=== PATIENT | female | born 1980 | race Caucasian/White ===

== ENCOUNTER 2016-11-12 21:38 | Observation (INO) | payer OTHER ==
[2016-11-13] MEDS ORDERED: LR 1,000 ML IV ONE (00:30)
[2016-11-13] MEDS ORDERED: PROMETHAZINE HCL 25 MG TAB PO ONE (00:30)
--- NOTE | 2016-11-13 08:24 | OBPROG ---
OBG Progress Note Assessment/Plan: Assessment: 36 y/o @ 37 6/7 wks who presents with previous c/s with c/o painful ctx' s for morphine rest Plan: FHTs Cat I strip No change in cervix upon exam by RN this am s/p morphine rest, pt slept throughout the night Discussed with pt that her ctx's despite being painful are not making any cervical change Pt eat breakfast prior to d/c Plan for d/c home with labor precautions Recommend warm baths/showers, heating pad and [place] (Rx given) as needed for pain RTC in 1 week for visit 11/13/16 08:20 11/13/16 08:25 Subjective: Pt seen and examined. She states ctx's have spaced out since receiving morphine and that some are more painful than others. Denies any LOF or VB. Good FM noted. Pt has not eaten since 1800 last pm. Trying to stay well hydrated. - SVE Dilation (cm): 0 Station: -2, -1 Current Contraction Pattern: Irregular FHR (bpm): 130 FHR Pattern Variability: Moderate FHR Category: 1 Membranes: Intact - Physical Exam General Appearance: WD/WN, alert, no apparent distress Abdomen: non-tender, soft, other (gravid) ICD10 Worksheet Patient Problems: Problems Problem Status Onset Uterine contractions Acute Previous section Acute
--- NOTE | 2016-11-13 09:12 | GHP ---
[f rep st] HISTORY AND PHYSICAL DATE OF ADMISSION: 11/12/2016 . ADMITTING DIAGNOSES: 1. Intrauterine at 37 and 5/7 weeks. 2. Painful uterine contractions, r/o labor 3. Previous section. HISTORY OF PRESENT ILLNESS: Patient is a 36-year-old, 2, para 1-0-0-1 at 37 and 5/7 days with estimated due date 11/28/2016 by last menstrual 2015, confirmed by a first-trimester ultrasound at 8 weeks. The patient presents to Labor and Delivery with complaints of painful contractions on and off for the last 24 hours. The patient was given the option to come in to Labor and Delivery for morphine rest, and that is what she did. The patient denies any leakage of fluid. She did note some spotting but no vaginal bleeding. Good movement noted. The patient does have good care at [facility], and presented in her 1st trimester at 8 weeks and 5 days. is complicated by a history of a secondary to breech. Patient does desire repeat at this time. The patient does have a history of anxiety, not taking any meds. She is Rh negative and did receive RhoGAM on 08/31/2016. The patient does have a history of kidney stones but no issues in this . The patient received both flu shot and TDaP during . GBS is negative. PAST OB HISTORY: In 2006, the patient delivered a viable female , weighing 6 pounds 6 ounces at 38 weeks via secondary to breech presentation. FINE DINING SERVER HISTORY: Menarche age 13. Cycles are every 28 days times 4-6 days. Last menstrual period 02/14/2016. Positive test 03/13/2016. The patient denies any exposure to STDs and any history of abnormal Pap smear except she did have an abnormal Pap during this , ASCUS with negative high-risk HPV. Both gonorrhea and chlamydia cultures were negative in this . PAST MEDICAL HISTORY: Remarkable for anxiety, kidney stones. PAST SURGICAL HISTORY: Remarkable for breast augmentation in 2012, a in 2006, and wisdom teeth extraction. FAMILY HISTORY: Maternal grandmother and mother with history of depression and anxiety. SOCIAL HISTORY: Patient is and lives with her and their daughter. The patient denies any alcohol, tobacco, or illicit drug use. LABORATORIES: Patient is A negative, antibody negative. RPR nonreactive. Rubella low positive. Hepatitis B surface antigen negative. HIV negative. Pap test with ASCUS. Gonorrhea and chlamydia negative. AFP negative. Verifi is negative. H and H 12.3 and 36.3. 1-hour Glucola 69. Twenty-eight week Rh antibody negative. 34-week hematocrit 34. GBS is negative. PHYSICAL EXAMINATION: VITAL SIGNS: Upon admission vital signs are stable. Afebrile. GENERAL: Patient is alert, oriented x3. Well-nourished, well- developed female in no apparent distress. CARDIOVASCULAR: Regular rate and rhythm. LUNGS: Clear to auscultation. ABDOMEN: Gravid, soft, nontender, nondistended. PELVIC: Exam was done and the patient was found to be closed, 50 %, -2. EXTREMITIES: Normal to inspection without edema or calf tenderness. On monitor, heart tones are Category 1 tracing. Moderate variability. Positive accelerations. No decelerations. Baseline of 130 beats per minute. Irregular contractions. ASSESSMENT: The patient is a 36-year-old, 2, para 1-0-0-1 at 37 and 5/ 7 weeks with a previous who presents with painful contractions for morphine rest. PLAN: 1. Admit to Labor and Delivery for observation. 2. No active labor, suspect prodromal labor. 2. Will morphine rest. 3. NST. /[id number]/MODL MTDD
[2016-11-13] MEDS ORDERED: OXYTOCIN 100 UNITS/10 ML VIAL ONE (18:47)
[2016-11-13] MEDS ORDERED: fentaNYL 100 MCG/2 ML INJ ONE (18:48)
[2016-11-13] MEDS ORDERED: morphINE PF 5 MG/10 ML INJ ONE (18:49)
[2016-11-13] MEDS ORDERED: PHENYLEPHRINE 10 MG/ML SDV ONE (19:03)
== END 2016-11-13 10:30 | disposition home or self-care (01) ==
LOC: FLD 21:38
PROVIDERS: ADMIT Obstetrics & Gynecology; ATTEND Obstetrics & Gynecology
DX: O47.1 False labor at or after 37 completed weeks of gestation (principal); Z3A.37 37 weeks gestation of pregnancy; O34.212 Maternal care for vertical scar from previous cesarean delivery
CPT/HCPCS: 59025; G0378; J2274; J2370; J2590; J3010

== ENCOUNTER 2016-11-13 17:20 | Inpatient (IN) | payer OTHER ==
[2016-11-13] MEDS ORDERED: ceFAZolin 2 GM/DEXTROSE 100 ML IV ONE (18:26)
[2016-11-13] MEDS ORDERED: LR 500 ML IV ONE (18:26)
[2016-11-13] MEDS ORDERED: LR 1,000 ML IV SCH (18:30)
[2016-11-13] MEDS ORDERED: MISOPROSTOL 200 MCG TAB ONE (18:35)
[2016-11-13] MEDS ORDERED: AMMONIA AROMATIC 1 EACH AMP IH ONE (18:35)
[2016-11-13] MEDS ORDERED: OXYTOCIN 10 UNIT/ML VIAL ONE (18:35)
[2016-11-13] MEDS ORDERED: HEMABATE 250 MCG/1 ML AMP IM ONE (18:36)
[2016-11-13 18:37] LABS: % IMMATURE GRANULYOCYTES 0.5 % (0.0-1.1); ABSOLUTE IMMATURE GRANULOCYTES 0.07 10^3/uL (0.00-0.10); ADD DIFF? NO; ADD MORPH? NO; ADD SCAN? NO; ATYPICAL LYMPHOCYTE FLAG 10 (0-99); FRAGMENT RBC FLAG 0 (0-99); HEMATOCRIT 39.1 % (38.0-47.0); HEMOGLOBIN 13.7 g/dL (12.6-16.3); LEFT SHIFT FLG 0 (0-99); LIPEMIA HEMOLYSIS FLAG 90 (0-99); MEAN CELL HEMOGLOBIN 30.4 pg (27.9-34.1); MEAN CELL VOLUME 86.9 fL (81.5-99.8); MEAN PLATELET VOLUME 12.2 fL (8.7-11.7); PLATELET CLUMPS FLAG 0 (0-99); PLATELET COUNT 177 10^3/uL (150-400); RED CELL DISTRIBUTION WIDTH 12.8 % (11.5-15.2)
[2016-11-13] MEDS ORDERED: METHYLERGONOVINE MAL 0.2 MG/ML INJ ONE (18:37)
--- NOTE | 2016-11-13 19:24 | GHP ---
[f rep st] HISTORY AND PHYSICAL DATE OF ADMISSION: 11/13/2016 ADMITTING DIAGNOSES: 1. Intrauterine at 37 and 6/7 weeks. 2. Active labor. 3. Previous . 4. Declines trial of labor. HISTORY OF PRESENT ILLNESS: Patient is a 36-year-old, 2, para 1-0-0-1 at 37 and 6/7 weeks with estimated due date 11/28/2016 by last menstrual period 02/14/2016, was confirmed by 1st trimester ultrasound 8 weeks. The patient presents to labor and delivery with complaints of worsening contractions, closer , every 5 minutes and increased pain. Still notes brownish discharge, no leakage of fluid. States there is good movement. The patient does have good care at [facility], presented in her 1st trimester 8 weeks 5 days. is complicated by history of a secondary to breech. The patient does desire a repeat at this time. The patient has a history of anxiety, not taking any medications currently. She is Rh negative and received RhoGAM on 08/31/2016. The patient has a history of kidney stones. No issues with the . Patient received both flu shot and Tdap during this . GBS is negative. PAST OB HISTORY: 2006 the patient delivered a viable female infant, weighing 6 pounds 6 ounces at 38 weeks via secondary to breech presentation. CORPORATE FINANCIAL ANALYST HISTORY: Menarche age 13. Cycles every 28 days times 4 to 6 days. Last menstrual period 02/14/2016. Positive test 03/13/2016. The patient denies any exposure to STDs or any history of abnormal Pap smear, except she did have an abnormal Pap smear during this showing ASCUS with negative high-risk HPV. Both gonorrhea and chlamydia cultures were negative in this . PAST MEDICAL HISTORY: Remarkable for anxiety, kidney stones. PAST SURGICAL HISTORY: Remarkable for breast augmentation 2012, 2006 , and wisdom teeth extraction. FAMILY HISTORY: Maternal grandmother and mother with history of depression and anxiety. SOCIAL HISTORY: Patient is . Lives with her and daughter. The patient denies alcohol, tobacco, or illicit drug use. MEDICATIONS: vitamins, DHA. ALLERGIES: No known drug allergies. LABS: The patient is A negative, antibody negative, RPR nonreactive, rubella low positive, hepatitis B surface antigen negative, HIV negative. Pap test with ASCUS negative high-risk HPV. Gonorrhea and chlamydia cultures negative. AFP negative. Verifi is negative. H and H 12.3, 36.3. One-hour Glucola 69. 28-week Rh antibody negative. 34-week hematocrit 34. GBS is negative. PHYSICAL EXAM: VITAL SIGNS: Upon admission, vital signs are stable. GENERAL: Patient is alert, oriented x3. Well-nourished, well-developed female in mild to moderate distress secondary to painful contractions. CARDIOVASCULAR: Regular rate and rhythm. LUNGS: Clear to auscultation. ABDOMEN: Gravid, soft , nontender, nondistended. Contractions do palpate moderate to strong. PELVIC : Exam was done by the RN. Patient was found to be 3 cm dilated, 90% effaced, -1 station. EXTREMITIES: Normal to inspection without edema or calf tenderness. Monitor: heart tones category 1 tracing with baseline 130 beats per minute. Positive accelerations. No decelerations. Moderate variability. Regular contractions every 4 to 5 minutes. ASSESSMENT: Patient is a 36-year-old, 2, para 1-0-0-1 at 37 and 6/7 weeks with a previous who presents in active labor and declines a trial of labor. PLAN: 1. Admit to labor and delivery for repeat . 2. Surgical consents obtained. Risks, benefits, alternatives reviewed with the patient including, but not limited to, bleeding, infection, damage to surrounding organs. 3. Antibiotics concrete mixing truck driver to OR. 4. SCDs for DVT prophylaxis. 5. Anesthesia is aware and we will proceed urgently since patient is in labo and declines a trial of labor. /[id number]/MODL MTDD
[2016-11-13] MEDS ORDERED: MIDAZOLAM 2 MG/2 ML VIAL ONE (19:36)
[2016-11-13] MEDS ORDERED: PROPOFOL 200 MG/20 ML VIAL ONE (19:39)
[2016-11-13] MEDS ORDERED: POLYETHYLENE GLYCOL 3350 17 GM PKT PO PRN (20:13)
[2016-11-13] MEDS ORDERED: MAGNESIUM HYDROXIDE 30 ML UDCUP PO PRN (20:13)
[2016-11-13] MEDS ORDERED: BISACODYL 10 MG SUPP PR PRN (20:13)
[2016-11-13] MEDS ORDERED: LACTULOSE 20 GM/30 ML UDCUP PO PRN (20:13)
[2016-11-13] MEDS ORDERED: SIMETHICONE 80 MG TAB CHEW PO PRN (20:13)
[2016-11-13] MEDS ORDERED: HYDROCODONE/APAP 5/325 TAB PO PRN ×2 (20:13→20:17)
[2016-11-13] MEDS ORDERED: PHENYLEPHRINE HCL 100 MCG/ML SYR IVP PRN (20:17)
[2016-11-13] MEDS ORDERED: fentaNYL 100 MCG/2 ML INJ IVP PRN (20:17)
[2016-11-13] MEDS ORDERED: NALOXONE HCL 0.4 MG/ML INJ IVP PRN ×2 (20:17)
[2016-11-13] MEDS ORDERED: HYDROmorphONE/DILAUDID 1 MG/ML SYR IVP PRN (20:17)
[2016-11-13] MEDS ORDERED: MEPERIDINE 25 MG/ML SYR IVP PRN (20:17)
[2016-11-13] MEDS ORDERED: ONDANSETRON 4 MG/2 ML VIAL IVP PRN ×2 (20:17)
--- NOTE | 2016-11-13 20:19 | OBPROC ---
- Delivery Pre-op Diagnoses: Previous in active labor, declines trial of labor Post-op Diagnoses: Previous in active labor, declines trial of labor Procedure: Repeat Surgeon: Sahara Roche Detonator Assembler: Nina Kaplan Anesthesiologist: Perry Perez Casting Coordinator/INTERNATIONAL SALES MANAGER: Aline Pascual Anesthesia: Spinal Complications: None Findings: Grossly normal appearing uterus, tubes and ovaries b/l Specimen(s)/Path: Other (Specify) (none) IV Fluid (ml): 1,700 EBL: 800 cc UO: 200 cc clear urine at end of procedure - Info A Delivery Date: 11/13/16 Delivery Time: 19:32 Sex of : Female Score (1 Min): 9 Score (5 Min): 9
--- NOTE | 2016-11-13 20:21 | POSTANESTH ---
Post Anesthetic Evaluation Cardiovascular Status: Normal, Stable Respiratory Status: Normal, Stable Level of Consciousness/Mental Status: Can Participate in Eval Pain Control: Adequate, Prn Tx Ordered Nausea/Vomiting Control: Adequate, Prn Tx Ordered Complications Possibly Related to Anesthesia: None Noted
--- NOTE | 2016-11-13 20:55 | GOP ---
[f rep st] OPERATIVE REPORT DATE OF OPERATION: 11/13/2016 SURGEON: Sahara Roche DO TOBACCO CONDITIONER: Nina Kaplan, surgical it assistant ANESTHESIA: Spinal. PREOPERATIVE DIAGNOSIS: 1. Intrauterine at 37 weeks and 6 days. 2. Previous section in active labor. 3. Declines trial of labor. POSTOPERATIVE DIAGNOSIS: 1. Intrauterine at 37 weeks 6 days. 2. Previous section in active labor. 3. Declines trial of labor. PROCEDURE PERFORMED: Repeat low transverse section. FINDINGS: Grossly normal-appearing uterus, tubes, and ovaries bilaterally. SPECIMENS: None. ESTIMATED BLOOD LOSS: 800 cc. INDICATIONS: The patient is a 36-year-old, 2, para 1-0-0-1 at 37 weeks and 6 days who presents in active labor with a history of a previous , declines a trial of labor. DESCRIPTION OF PROCEDURE: The patient was taken to the operating room where spinal anesthesia was obtained without difficulty. Patient was prepped and draped in the usual sterile fashion, placed in supine position with tilt. Skin incision was then made with a knife, extended to the fascia with the Bovie. The fascia was then nicked, extended bilaterally with Valerio scissors. The fascia was then dissected off the rectus muscles bluntly and in the midline. Peritoneum was elevated with hemostats, entered bluntly and extended bilaterally. Bladder blade was then placed. Visceral peritoneum was then entered with the Metzenbaum scissors. Bladder flap created using both sharp and blunt dissection. Bladder blade was advanced. The uterus was incised with a knife in horizontal fashion. The lower uterine segment was extended anterior and posteriorly. Baby was then delivered in the cephalic presentation without difficulty. The cord was clamped x2 and ligated. The baby was handed off to the nurse practitioner. It is a baby girl, Apgars 9 and 9. Placenta was then delivered spontaneously intact. Uterus was then exteriorized. Cavity was cleaned with moist sponges. Uterine incision was then closed with a running stitch of 0 Vicryl. Hemostasis was noted. A second imbricating layer was then closed with 0 Vicryl stitch. Hemostasis was noted. We did at this time look at the ovaries and tubes which appeared normal. We then again looked back at the uterine incision and hemostasis was noted. Uterus was then placed back inside the abdomen. The gutters were then cleaned of blood and clots. The incision was visualized again. There was noted to be some oozing. Surgical Mitchel was placed on the incision and hemostasis was achieved. The rectus muscles were then approximated using 2-0 Vicryl. The fascia was then closed with 0 Vicryl running suture. Hemostasis was noted. The skin incision was then closed with a 4-0 Vicryl on a Hiro needle. Patient tolerated the procedure well. No complications. Sponge, lap and instrument counts correct x2. The patient did receive 2 g of Ancef prior to the incision. The patient was then taken out of supine position, taken to the recovery room in stable condition. COMPLICATIONS: None. INTRAVENOUS FLUIDS: 1700 cc lactated Ringer's. URINE OUTPUT: 200 cc of clear urine at the end of the procedure. /[id number]/MODL MTDD
[2016-11-13] MEDS ORDERED: KETOROLAC 30 MG/1 ML SDV ONE (21:31)
[2016-11-13] MEDS: KETOROLAC 30 MG/1 ML SDV IVP SCH (21:33)
[2016-11-14] MEDS: SENNOSIDES/DOCUSATE SODIUM TAB PO SCH ×3 (00:05→20:57)
[2016-11-14] MEDS: KETOROLAC 30 MG/1 ML SDV IVP SCH ×3 (04:01→16:49)
--- NOTE | 2016-11-14 11:56 | OBPROG ---
OBG Progress Note Assessment/Plan: Assessment: 1) s/p RCS POd # 0.5 - pt is stable 2) Anemia - pt is asymptomatic Plan: Continue routine pp care Encourage ambulation and IS Ricardo to be removed Will start Bifera Pt may shower Plan for d/c home in 24-48 hrs Xanax is not safe in and pt does not want to take Zoloft 11/14/16 11:51 Subjective: Pt seen and examined. Doing well, no complaints. She has noticed increased panic attacks and does her breathing through them, but wants something prn. Does not want to be back on Zoloft. Pt is OOB, adriana regular diet, ricardo in place , + flatus. Moderate lochia. Denies any f/c/n/v/cp or SOB. without difficulty. Objective: 11/14/16 04:00 Patient ABO/Rh A NEGATIVE 11/13/16 21:35 Temp Pulse Resp BP Pulse Ox 37.0 C 70 16 95/43 L 94 11/14/16 09:15 11/14/16 09:15 11/14/16 09:15 11/14/16 09:15 11/14/16 09:15 Uterine Position/Fundal Height: Umbilicus -2 Uterine Tone: Firm - Physical Exam General Appearance: WD/WN, alert, no apparent distress Respiratory: lungs clear, normal breath sounds Cardiac/Chest: regular rate, rhythm Abdomen: normal bowel sounds, soft, flatus (+), incision (C/D/I), dressing (Dry and intact) Genitourinary: lochia (Moderate) Extremities: non-tender, normal inspection Neuro/Psych: alert, normal mood/affect, oriented x 3 ICD10 Worksheet Patient Problems: Problems Problem Status Onset Status post repeat low transverse section Acute Uterine contractions Acute Previous section Acute
[2016-11-14] MEDS: IRON POLYSAC/IRON HEME 28 MG TAB PO SCH (20:57)
[2016-11-14] MEDS: IBUPROFEN 600 MG TAB PO PRN (22:45)
[2016-11-15] MEDS: HYDROCODONE/APAP 5/325 TAB PO PRN ×5 (01:46→20:11)
[2016-11-15] MEDS: IBUPROFEN 600 MG TAB PO PRN ×3 (05:21→23:57)
[2016-11-15] MEDS: IRON POLYSAC/IRON HEME 28 MG TAB PO SCH ×2 (09:56→20:12)
[2016-11-15] MEDS: SENNOSIDES/DOCUSATE SODIUM TAB PO SCH ×2 (09:57→20:12)
--- NOTE | 2016-11-15 10:40 | OBPROG ---
OBG Progress Note Assessment/Plan: Assessment: 1) s/p RCS POD # 1.5 - pt is stable 2) Anemia - pt is asymptomatic Plan: Continue routine pp care Encourage ambulation Plan for d/c home in 48 hrs 11/15/16 10:37 Subjective: Pt seen and examined. Feeling much better, slept and showered this am. Pain is well controlled with po meds. PT is OOB, adriana reg diet, voiding and BM x 1. Mild lochia. without difficulty. She wants to stay the full 4 days for support. Dealing with her anxiety with breathing techniques. Objective: 11/14/16 04:00 Patient ABO/Rh A NEGATIVE 11/13/16 21:35 Temp Pulse Resp BP Pulse Ox 36.8 C 63 16 82/51 L 93 11/15/16 08:30 11/15/16 08:30 11/15/16 08:30 11/15/16 08:30 11/15/16 01:48 Uterine Position/Fundal Height: Umbilicus -2 Uterine Tone: Firm - Physical Exam General Appearance: WD/WN, alert, no apparent distress Respiratory: lungs clear, normal breath sounds Cardiac/Chest: regular rate, rhythm Abdomen: normal bowel sounds, non-tender, soft, flatus (+), incision (C/D/I with some ecchymosis) Extremities: non-tender, normal inspection Neuro/Psych: alert, normal mood/affect, oriented x 3 ICD10 Worksheet Patient Problems: Problems Problem Status Onset Status post repeat low transverse section Acute Previous section Acute Uterine contractions Acute
[2016-11-15] MEDS: DOCUSATE SODIUM 100 MG CAP PO PRN (20:10)
[2016-11-16] MEDS: IBUPROFEN 600 MG TAB PO PRN ×3 (07:05→19:24)
--- NOTE | 2016-11-16 08:12 | SOAPPROG ---
SOAP Progress Note Assessment/Plan: Assessment: voiding without difficulty incision approximated well right nipple bruising discussed latch and positioning pain well managed passing gas Plan:poc discharge to home tomorrow 11/16/16 08:12 Subjective: doing well denies difficulties with pain. Constipation fifficulties. PAssing gas but small amounts per patient. Objective: Vital Signs Temp Pulse Resp BP Pulse Ox 36.6 C 60 18 95/58 L 96 11/15/16 20:00 11/15/16 20:00 11/15/16 20:00 11/15/16 20:00 11/15/16 20:00 Laboratory Results 11/14/16 04:00 11/15/16 11/16/16 11/17/16 05:59 05:59 05:59 Output Total 1100 Balance -1100 - Time Spent With Patient Time Spent With Patient: 15 minutes - Pending Discharge Pending Discharge Within 24 Hours: Yes Pending Discharge Date: 11/17/16 Pending Discharge Time: 11:00 Physical Exam - Physical Exam General Appearance: WD/WN, alert Respiratory: chest non-tender, lungs clear, normal breath sounds Cardiac/Chest: regular rate, rhythm Abdomen: normal bowel sounds, other (diminished/ ff@u/ ) Pelvic Exam: vaginal bleeding (scant rubra lochia/ ) Skin: normal color, warm/dry Extremities: normal range of motion, Harvey's sign (negative/ dtr1+ bilaterally no clonus) Neuro/Psych: no motor/sensory deficits, alert, normal mood/affect, oriented x 3 ICD10 Worksheet Patient Problems: Problems Problem Status Onset Status post repeat low transverse section Acute Previous section Acute Uterine contractions Acute
[2016-11-16] MEDS: IRON POLYSAC/IRON HEME 28 MG TAB PO SCH ×2 (08:24→21:36)
[2016-11-16] MEDS: HYDROCODONE/APAP 5/325 TAB PO PRN ×4 (08:24→21:37)
[2016-11-16 09:27] VITALS: O2SAT 95
[2016-11-16] MEDS: SENNOSIDES/DOCUSATE SODIUM TAB PO SCH ×2 (10:42→21:42)
[2016-11-16] MEDS: DOCUSATE SODIUM 100 MG CAP PO PRN ×2 (10:47→21:36)
[2016-11-17] MEDS: IBUPROFEN 600 MG TAB PO PRN ×2 (03:19→09:39)
[2016-11-17] MEDS: HYDROCODONE/APAP 5/325 TAB PO PRN (03:20)
[2016-11-17 08:38] VITALS: BP 105/62; PULSE 59; RESP 16; TEMP 97.8
--- NOTE | 2016-11-17 08:51 | OBPROG ---
OBG Progress Note Assessment/Plan: Assessment: 1) s/p RCS POD # 3.5 - pt is stable 2) Anemia - pt is asymptomatic Plan: Continue routine pp care Plan for d/c home today Instructions reviewed Rx given for [place] and Motrin Cont PNV Recommend iron and colace Pelvic rest RTC in 2, 4 and 6 weeks 11/17/16 08:48 Subjective: Pt seen and examined. Doing well, sitting in rocking chair. Pain is well controlled with [place] and Motrin. Pt is OOB, adriana regular diet, voiding without difficulty. Had loose stools yesterday. Mild lochia. without difficulty. Objective: 11/14/16 04:00 Patient ABO/Rh A NEGATIVE 11/13/16 21:35 Temp Pulse Resp BP Pulse Ox 36.6 C 59 L 16 105/62 95 11/17/16 08:00 11/17/16 08:00 11/17/16 08:00 11/17/16 08:00 11/17/16 08:00 Uterine Position/Fundal Height: Umbilicus -2 Uterine Tone: Firm - Physical Exam General Appearance: WD/WN, alert, no apparent distress Respiratory: lungs clear, normal breath sounds Cardiac/Chest: regular rate, rhythm Abdomen: normal bowel sounds, non-tender, soft, flatus (+), incision (C/D/I, well approximated) Genitourinary: lochia (mild) Extremities: non-tender, normal inspection Neuro/Psych: alert, normal mood/affect, oriented x 3 ICD10 Worksheet Patient Problems: Problems Problem Status Onset Status post repeat low transverse section Acute Previous section Acute Uterine contractions Acute
[2016-11-17] MEDS: IRON POLYSAC/IRON HEME 28 MG TAB PO SCH (09:39)
[2016-11-17] MEDS: SENNOSIDES/DOCUSATE SODIUM TAB PO SCH (10:06)
== END 2016-11-17 12:25 | disposition home or self-care (01) | DRG 766 ==
LOC: FLD 17:20 → FOB 22:28
PROVIDERS: ADMIT Obstetrics & Gynecology; ATTEND Obstetrics & Gynecology
PROC: 10D00Z1 Extraction of Products of Conception, Low, Open Approach (ICD-10-PCS; principal; 2016-11-13)
DX: O34.219 Maternal care for unspecified type scar from previous cesarean delivery (principal); O90.81 Anemia of the puerperium; Z3A.37 37 weeks gestation of pregnancy; Z37.0 Single live birth
CPT/HCPCS: G0463; J0690; J1885; J2210; J2250; J2704

== ENCOUNTER 2017-01-10 09:50 | Emergency (ER) | payer OTHER ==
--- NOTE | 2017-01-10 11:19 | EDPHY ---
H & P Stated Complaint: aleksandra jackson sent in, dx over phone Time Seen by Provider: 01/10/17 10:10 HPI/ROS: CHIEF COMPLAINT: Hemorrhoid HISTORY OF PRESENT ILLNESS: 36-year-old female presents emergency department complaining of a hemorrhoid this started this morning after a bowel movement. Patient reports it is very painful. Patient has tried preparation H and which he has a wipes without relief. She gave 8 weeks ago, had intermittent hemorrhoids through her that were improved with [id number] treatments. Patient states this is the worst. She denies fevers, abdominal pain , nausea or vomiting. REVIEW OF SYSTEMS: A comprehensive 10 point review of systems is otherwise negative aside from elements mentioned in the history of present illness. Source: Patient Exam Limitations: No limitations - Personal History LMP (Females 10-55): Unknown Current Tetanus/Diphtheria Vaccine: Yes Current Tetanus Diphtheria and Acellular Pertussis (TDAP): Yes - Medical/Surgical History Hx Asthma: No Hx Chronic Respiratory Disease: No Hx Diabetes: No Hx Cardiac Disease: No Hx Renal Disease: No Hx Cirrhosis: No Hx Alcoholism: No Hx HIV/AIDS: No Hx Splenectomy or Spleen Trauma: No Other PMH: c section, sx kideney stones, anxiety, breast aug, dental - Social History Smoking Status: Never smoked - Physical Exam Exam: GEN: Awake, alert, oriented, no acute distress RESP: nl resp effort MSK: Normal appearing Rectal: Two large cashew shaped external hemorrhoids Constitutional: Initial Vital Signs Temperature (C) 36.6 C 01/10/17 09:57 Heart Rate 54 L 01/10/17 09:57 Respiratory Rate 16 01/10/17 09:57 Blood Pressure 101/56 L 01/10/17 09:57 O2 Sat (%) 97 01/10/17 09:57 O2 Delivery Mode Room Air Allergies/Adverse Reactions: acetaminophen [From Percocet] Allergy (Mild, Verified 11/13/16 23:59) oxycodone HCl [From Percocet] Allergy (Mild, Verified 11/13/16 23:58) Home Medications: Medication Instructions Recorded Albuterol [Proventil Inhaler HFA 1 - 2 puffs IH Q4PRN PRN #1 mdi 07/04/12 (*)] Propranolol HCl [Inderal 10mg (*)] 10 mg PO PRN 07/04/12 Propranolol HCl 03/12/14 Tamsulosin HCl [Flomax 0.4 MG (*)] 0.4 mg PO DAILY PRN #5 cap 03/12/14 Medical Decision Making ED Course/Re-evaluation: 1100-hemorrhoids do not appear to be thrombosed. I was unable to reduce the hemorrhoids. Dr. Casas has been consulted and will see the patient. 1130am- Dr. Casas is at bedside. He is requesting discharge home with patient taking around the clock ibuprofen and icing to her swelling. She has external hemorrhoids significant amount of edema surrounding a likely thrombosed area. He will follow up with her in clinic. Patient is comfortable with this plan. Departure - Departure Disposition: Home, Routine, Self-Care Clinical Impression: Hemorrhoids Qualifiers: Hemorrhoid type: unspecified Qualified Code(s): K64.9 - Unspecified hemorrhoids Condition: Good Instructions: Hemorrhoids (ED) Additional Instructions: Take 600 mg of ibuprofen every 8 hours with food. Ice to your hemorrhoids. Follow up with Dr. Casas. Call tomorrow to schedule this appointment. Return to the emergency department for worsening symptoms, pain that is not controlled. Referrals: French Casas MD [Medical Doctor] - As per Instructions
[2017-01-10] MEDS ORDERED: IBUPROFEN 600 MG TAB PO ONE (11:48)
[2017-01-10 12:00] VITALS: BP 115/75; PULSE 85; RESP 18; TEMP 98.2; O2SAT 96
== END 2017-01-10 11:59 | disposition home or self-care (01) ==
DX: K64.4 Residual hemorrhoidal skin tags (principal)

== ENCOUNTER 2018-02-19 22:10 | Observation (INO) | payer OTHER | END 2018-02-19 23:02 | disposition home or self-care (01) | LOC: FLD 22:10 | PROVIDERS: ADMIT Obstetrics & Gynecology; ATTEND Obstetrics & Gynecology | DX: R10.9 Unspecified abdominal pain (principal); O09.292 Supervision of pregnancy with other poor reproductive or obstetric history, second trimester; Z3A.17 17 weeks gestation of pregnancy | CPT/HCPCS: G0378 ==

== ENCOUNTER 2018-06-17 18:29 | Observation (INO) | payer OTHER ==
--- NOTE | 2018-06-17 20:58 | PDGENHP ---
History and Physical - Chief Complaint increased Valentino Perez contractions and pelvic pressure - History of Present Illness 38 at 34w4d here with increased Bh ctxns and more pelvic pressure. Has noticed this over the past few days, but more this afternoon. NO VB, no ssx PIH. Has been having a little leakage, but doesn't know if is urinary incontinence. Good FM. These do not feel like labor contractions, and have decreased since arrival here. Hx of 2 prior C/S - first for breech 10 year ago, and a repeat 1.5 years ago. labs Neg Innatal, + SMA carrier A neg Rubella low immune All others wnl History Information - Allergies/Home Medication List Allergies/Adverse Reactions: acetaminophen [From Percocet] Allergy (Mild, Verified 02/19/18 22:53) oxycodone HCl [From Percocet] Allergy (Mild, Verified 02/19/18 22:53) I have personally reviewed and updated: family history, medical history, social history, surgical history Past Medical History: anxiety, nephrolithiasis - Past Medical History asthma - Surgical History Additional surgical history: C/S x 2, breast augmentation 2013 - Family History Additional family history: anxiety, depression, Etoh abuse - Social History Smoking Status: Never smoked Alcohol Use: None Drug Use: None Review of Systems Review of Systems: ROS: 10pt was reviewed & negative except for what was stated in HPI & below Physical Exam Physical Exam: FHR - 140s reactive, Cat 1 toco - 6-7 contractions per hour VSS afeb Constitutional: no apparent distress, appears nourished, not in pain Eyes: PERRL, EOMI Ears, Nose, Mouth, Throat: moist mucous membranes, hearing normal, ears appear normal Cardiovascular: regular rate and rhythym, no murmur, rub, or gallop Respiratory: no respiratory distress, no rales or rhonchi, clear to auscultation Gastrointestinal: normoactive bowel sounds, soft, non-tender abdomen (gravid) Genitourinary: no bladder fullness (SVE - cervix is closed / long / high, vertex ballotable through lower uterine segment) Skin: warm, normal color Musculoskeletal: full muscle strength Neurologic: AAOx3, sensation intact bilaterally Psychiatric: interacting appropriately, not anxious Lab Data & Imaging Review Membrane Rupture NEGATIVE (NEGATIVE) 06/17/18 19:43 Assessment & Plan Assessment: Imp:38 at 34w4d, with contractions, but no evidence of labor. hx of 2 prior C/S Plan: DC home, reviewed hydration and PTL precautions. Keep appt in office in 5 days. Sujey Wallis MD, [facility] > 30 min spent face to face, > 50% counseling.
== END 2018-06-17 20:47 | disposition home or self-care (01) ==
LOC: FLD 18:29
PROVIDERS: ADMIT Hospitalist; ATTEND Hospitalist
DX: O47.03 False labor before 37 completed weeks of gestation, third trimester (principal); O34.219 Maternal care for unspecified type scar from previous cesarean delivery; Z3A.34 34 weeks gestation of pregnancy
CPT/HCPCS: 59025; G0378

== ENCOUNTER 2018-07-20 05:30 | Inpatient (IN) | payer OTHER ==
--- NOTE | 2018-07-15 09:52 | GHP ---
DATE OF ADMISSION: 07/20/2018 PREOPERATIVE HISTORY: Patient is a 38-year-old, G3, P2, with estimated due date of 07/25/2018, with a planned repeat section scheduled for 07/20. Patient was offered but declined tubal ligati on. Patient has off and on had contraction patterns which have resolved with hydration on [place] and Delivery. The patient does feel Valentino Perez contractions, but no frequent patterns. Bag o f water intact. No bleeding. Patient has been having good movement. Patient was thoroughly c ounseled about the risks and benefits of repeat section and the consent form signed. Saleem mendieta declines tubal ligation at the time of surgery. CURRENT HISTORY: The patient has been followed with [facility] since 8 weeks' ge station. The patient had spotting in the first trimester and received RhoGAM on December 10. Spottin g resolved spontaneously. Patient still had positive antibodies, but received her 2nd RhoGAM on Apr. At the time of the anatomy ultrasound, the placenta was noted to be anterior with the ti p slightly covering over the prior scar area. There was no sign of invasion. This was reevaluated a t 30 weeks and the placenta was clear of the incision area. Patient had significant episode of hemor rhoid flare at 33 weeks' gestation. She had multiple enlarged hemorrhoids and was referred to a GI edwin williamson for evaluation. Patient reduced her iron to every other day to minimize constipation affect. LABS: The patient's blood type is A negative with negative antibody screen. RPR nonreactiv e. Rubella is low immune. Hepatitis B surface antigen is negative. HIV is negative. Patient was f ound on the standard panel to be a carrier for SMA. Her was checked and was negative. Izaiah benitez is immune to varicella, but nonimmune to parvovirus. Urinalysis and culture were negative. Pap s mear normal. Gonorrhea and chlamydia negative. Verified testing was negative. One-hour Glucola was normal. Platelet levels at the beginning of were 185,000 and these were stable at 28 week s. Patient's hematocrit dropped in the from 39 down to 34, but showed slight improvement t o 35 in the last 2 months. GBS culture was negative. Patient had LCM testing due to exposure risk a nd this was negative. PAST MEDICAL HISTORY: Exercise-induced asthma; nephrolithiasis diagnosed in 2013; anxiety disorder, using medication back in 2011. PAST SURGICAL HISTORY: sections x2, the first in 2006, for breech, and the 2nd in 2016, for failure to progress. Breast augmentation in 2012. [place] teeth removed. HISTORY: In 2006, a viable female at 6 pounds 6 ounces delivered at 38 weeks due to breech presentation. In 2016, another female at 8 pounds; after 3 days of protracted labor, a repeat C-sec tion was performed. ALLERGIES: The patient is allergic to Vicodin causing nausea and vomiting, as well as Percocet. CURRENT MEDICATIONS: Include vitamins, Dha, and iron every other day. SOCIAL HISTORY: The patient is a nonsmoker. No alcohol use during the . Patient reports m arijuana use in the past, but stopped in June 2017. The patient is , lives with her husba nd and 2 daughters. PHYSICAL EXAMINATION: GENERAL: At the time of preop, the patient is a well-developed, well-nourishe d white female, in physical discomfort with usual symptoms. VITAL SIGNS: Normal, with mat ernal blood pressure 102/68 and the patient clinically afebrile. Weight 141 pounds. Urinalysis nega tive for protein and glucose. LUNGS: Clear to auscultation bilaterally. CARDIOVASCULAR: Regular ra te and rhythm. ABDOMEN: Fundal exam shows 34 cm fundal height with heart tones in the 150s. An ultrasound was done to check for growth with size less than dates and the size was appropriate on ultrasound with estimated weight of 49th percentile at 6 pounds 10 ounces. Fluid level was nor mal. PELVIC: Deferred. EXTREMITIES: Nontender and no edema. ASSESSMENT: Intrauterine at 39 weeks' gestation, presenting for a scheduled repeat cesarea n section. Maternal blood type A negative. Rubella, low immunity. GBS culture negative. PLAN: The patient will present for repeat on July 20, and will receive the usual pre operative antibiotics and have on SCDs for the surgery. /[id number]/MODL
[2018-07-20] MEDS ORDERED: ceFAZolin 2 GM/DEXTROSE 100 ML IV ONE (05:35)
[2018-07-20] MEDS ORDERED: CITRIC ACID/SODIUM CITRATE 30 ML UDCUP PO ONE (05:35)
[2018-07-20] MEDS ORDERED: LR 500 ML IV ONE (05:35)
[2018-07-20 06:01] LABS: PLATELET COUNT 195 10^3/uL (150-400)
--- NOTE | 2018-07-20 06:10 | PREANESOB ---
Obstetric Pre-Anesthesia Info - General Info Proposed Procedure: repeat C/S : 3 Para: 2 PATRICK: 07/25/18 Gestational Age: 39 week(s) and 2 day(s) - Info Status: Full Term - Labor Status PIH: No Magnesium Sulfate in Use: No Section History: Repeat Indications for Current Section: Elective/Repeat Labor Epidural: No Anesthesia ROS: exercise induced RAD - no ER visits, anxiety, nephrolithiasis - last symptomatic stone 4 yrs ago, hemorrhoids aggravated during this , h/o self-terminating SVT - no syncope with episodes, no treatment. Allergies/Adverse Reactions: Allergy/AdvReac Type Severity Reaction Status Date / Time acetaminophen [From Percocet] Allergy Mild Verified 02/19/18 22:53 oxycodone HCl [From Percocet] Allergy Mild Verified 02/19/18 22:53 Visit Medications: Generic Name Dose Route Start Last Admin Trade Name Freq PRN Reason Stop Dose Admin Lactated Ringer's 1,000 mls @ 125 mls/hr 07/20/18 05:35 Lr IV 07/21/18 05:34 CONT SONDRA Discontinued Medications Generic Name Dose Route Start Last Admin Trade Name Freq PRN Reason Stop Dose Admin Citric Acid/Sodium Citrate 30 ml 07/20/18 05:35 Bicitra PO 07/20/18 05:36 ONCALL ONE Cefazolin Sodium/Dextrose 100 mls @ 200 mls/hr 07/20/18 05:35 Ancef IV 07/20/18 06:04 ONCALL ONE Protocol Lactated Ringer's 500 mls @ 0 mls/hr 07/20/18 05:35 Lr IV 07/20/18 05:36 ONCE ONE As Directed - Anesthesia History Response to Local Anesthetics: Normal Anesthesia & Operative History: No Prior Problems Family Anesthesia History: Negative - Social History Substance Use/Abuse: Denies - Vital Signs Latest Vital Signs (Nursing): see nurses notes for recent VS. Height/Weight (Nursing): Height 160.02 cm Weight 63.957 kg - Focused Exam Neck exam: FROM Mallampati Score: Class 2 Mouth exam: normal dental/mouth exam Pulmonary: clear to auscultation Cardiovascular: regular rate and rhythym Labs: 07/20/18 05:45 - Plan Consent Signed and on Chart: Yes General Comments: Pt has had two previous C/S with SAB. Had nausea and panic attack intra-op.
[2018-07-20] MEDS ORDERED: OXYTOCIN 10 UNIT/ML VIAL ONE (07:16)
[2018-07-20] MEDS ORDERED: AMMONIA AROMATIC 1 EACH AMP IH ONE (07:16)
[2018-07-20] MEDS ORDERED: MISOPROSTOL 200 MCG TAB ONE (07:16)
[2018-07-20] MEDS ORDERED: TERBUTALINE SULFATE 1 MG/ML VIAL ONE (07:16)
[2018-07-20] MEDS ORDERED: BUPIVACAINE/DEXTROSE 7.5MG/ML 2 ML SPINAL AMP SP ONE (07:23)
[2018-07-20] MEDS ORDERED: OXYTOCIN 100 UNITS/10 ML VIAL ONE (07:23)
[2018-07-20] MEDS ORDERED: morphINE PF 5 MG/10 ML INJ ONE (07:24)
[2018-07-20] MEDS: LR 1,000 ML IV SCH ×2 (07:29→12:03)
--- NOTE | 2018-07-20 07:33 | PDHPUP ---
History & Physical Update H&P update statement: This history and physical update is based on an assessment of the patient which was completed after admission or registration (within 24 hours), but prior to the surgery/procedure. H&P update: no change in patient's condition since H&P completed
[2018-07-20] MEDS ORDERED: MIDAZOLAM 2 MG/2 ML VIAL ONE (08:44)
[2018-07-20] MEDS ORDERED: METOCLOPRAMIDE 10 MG/2 ML VIAL IVP PRN (08:52)
[2018-07-20] MEDS ORDERED: fentaNYL 100 MCG/2 ML INJ IVP PRN (08:52)
[2018-07-20] MEDS ORDERED: PHENYLEPHRINE HCL 100 MCG/ML SYR IVP PRN (08:52)
[2018-07-20] MEDS ORDERED: OXYCODONE/APAP 5/325 TAB PO PRN (08:52)
[2018-07-20] MEDS ORDERED: NALOXONE HCL 0.4 MG/ML INJ IVP PRN (08:52)
[2018-07-20] MEDS ORDERED: ONDANSETRON 4 MG/2 ML VIAL IVP PRN (08:53)
[2018-07-20] MEDS ORDERED: oxyCODONE IR 5 MG TAB PO PRN (09:28)
[2018-07-20] MEDS ORDERED: LACTULOSE 20 GM/30 ML UDCUP PO PRN (09:32)
[2018-07-20] MEDS ORDERED: MAGNESIUM HYDROXIDE 30 ML UDCUP PO PRN (09:32)
[2018-07-20] MEDS ORDERED: BISACODYL 10 MG SUPP PR PRN (09:32)
[2018-07-20] MEDS ORDERED: POLYETHYLENE GLYCOL 3350 17 GM PKT PO PRN (09:32)
[2018-07-20] MEDS ORDERED: MEASLES,MUMPS&RUBELLA VACC/PF 0.5 ML VIAL SC ONE (09:33)
[2018-07-20] MEDS ORDERED: PROMETHAZINE HCL 25 MG TAB PO PRN (09:33)
--- NOTE | 2018-07-20 09:38 | OBDEL ---
Info Type: Repeat Presentation at Delivery: Vertex L&D Analgesia/Anesthesia Type: Spinal GBS+: No Intrapartum Medications: Generic Name Dose Route Start Last Admin Trade Name Freq PRN Reason Stop Dose Admin Lactated Ringer's 1,000 mls @ 125 mls/hr 07/20/18 05:35 07/20/18 07:29 Lr IV 07/21/18 05:34 1,000 mls CONT SONDRA Administration Discontinued Medications Generic Name Dose Route Start Last Admin Trade Name Freq PRN Reason Stop Dose Admin Citric Acid/Sodium Citrate 30 ml 07/20/18 05:35 07/20/18 07:29 Bicitra PO 07/20/18 05:36 30 ml ONCALL ONE Administration Cefazolin Sodium/Dextrose 100 mls @ 200 mls/hr 07/20/18 05:35 07/20/18 07:29 Ancef IV 07/20/18 06:04 100 mls ONCALL ONE Administration Protocol Lactated Ringer's 500 mls @ 0 mls/hr 07/20/18 05:35 07/20/18 06:22 Lr IV 07/20/18 05:36 500 mls ONCE ONE Administration As Directed - Infant Care Provider Staff [employer]ine Warfare Officer/TRACTOR EXPERT: Daisy Jeffers Operative Report - Delivery Pre-op Diagnoses: IUP at 39wks, PCS x2 Post-op Diagnoses: same History of Prior Section: Yes Number of Prior Sections: 2 Nulliparous Prior to Delivery: No Indications for Prior Section: Arrest of Dilation, Breech Indications for Current Section: Elective/Repeat Procedure: Scheduled, Low Transverse Surgeon: Paris Palomino [employer] Drafter: Lidya Taylor Anesthesiologist: Clarisa Willingham Complications: None Findings: nl ut/tubes/ovaries, Pt very sensitive to visceral movement - rec'd additional pain meds through IV. Baby vigorour immed after delivery - 1 min delayed cord clamp. Placenta easily. Bladder very close to hysterotomy and very thin RIKY. Closure went well with clear visual away from bladder edge - no pull through of uterine tissue. only single layer closure due to thin layer and close proximity to bladder. great uterine tone quickly. Scar revision from very splayed widened scar. closure with 4-0 vicryl SQ. monsels with steri- strips. IV Fluid (ml): 2,250 EBL: 1000 Data PATRICK: 07/25/18 Gestational Age: 39 week(s) and 2 day(s) Rees Delivery Date: 07/20/18 Delivery Time: 08:29 Sex of Infant: Female Weight (gm): 3362 g Score (1 Min): 9 Score (5 Min): 9 ICD10 Worksheet Patient Problems: Problems Problem Status Onset Previous section Acute Status post repeat low transverse section Acute Uterine contractions Acute
[2018-07-20] MEDS: KETOROLAC 30 MG/1 ML SDV IVP SCH ×3 (10:32→22:30)
[2018-07-20] MEDS: ACETAMINOPHEN 325 MG TAB PO SCH ×3 (11:44→20:48)
[2018-07-20] MEDS: IBUPROFEN 600 MG TAB PO SCH ×3 (11:45→21:22)
--- NOTE | 2018-07-20 20:09 | OBPP ---
Progress Note Assessment/Plan: Assessment: POD 1/2 s/p RCS x3 Plan: routine care, check hct in am 07/20/18 19:56 Subjective/ Course: 07/20/18 19:57 Pt doing well. Has now tolerated regular food without n/v. Pain well controlled with duramorph/toradol. baby is breast feeding well. really not bothered by intense cramps. SCDs bothersome - ok to remove for sleep. Objective: 07/20/18 05:45 Patient ABO/Rh A NEGATIVE 07/20/18 09:45 Temp Pulse Resp BP Pulse Ox 36.8 C 60 16 95/56 L 95 07/20/18 16:38 07/20/18 16:38 07/20/18 16:38 07/20/18 16:38 07/20/18 16:38 Uterine Position/Fundal Height: Umbilicus -1 Uterine Tone: Firm Physical Exam - Physical Exam Abdomen: non-tender (approp post op tenderness), soft, dressing (CDI) Extremities: non-tender, pedal edema (none) Skin: normal color, warm/dry Neuro/Psych: alert, normal mood/affect
[2018-07-20] MEDS: SENNOSIDES/DOCUSATE SODIUM TAB PO SCH (20:48)
[2018-07-21] MEDS: IBUPROFEN 600 MG TAB PO SCH ×4 (04:30→21:21)
[2018-07-21] MEDS: KETOROLAC 30 MG/1 ML SDV IVP SCH (04:32)
[2018-07-21] MEDS: ACETAMINOPHEN 325 MG TAB PO SCH ×4 (04:32→21:21)
--- NOTE | 2018-07-21 09:39 | PDPAINCON ---
Pain Management Consultation Patient referred by : Georgette - Subjective Pain at rest (/10): 2 Pain is: low, well controlled Activity: able to ambulate - Objective Technique: spinal opioid Sensory and motor exam: block has resolved, no apparent ill effects Vital signs: stable - Assessment/Plan Assessment/Plan: pain well-controlled, continue current mgmt
[2018-07-21] MEDS: SENNOSIDES/DOCUSATE SODIUM TAB PO SCH ×2 (09:48→21:21)
--- NOTE | 2018-07-21 11:14 | OBPP ---
Progress Note Assessment/Plan: Assessment: POD1 s/p scheduled RLTCS (3rd). Doing great - bandage off, IVF off, IV can be taken out. Routine advancements. Hct looks good, lochia minimal. May want to stay until the weekend. Rh neg - RhoGam if needed. Rubella low-immune - Per hospital lab anyting > 10 is immune technically, no MMR needed. JESSICA Subjective/ Course: 07/20/18 19:57 Pt doing well. Has now tolerated regular food without n/v. Pain well controlled with duramorph/toradol. baby is breast feeding well. really not bothered by intense cramps. SCDs bothersome - ok to remove for sleep. 07/21/18 16:20 Doing great - no issues. Would like her IV out. Pain controlled. BF going well. Objective: 07/21/18 04:45 Patient ABO/Rh A NEGATIVE 07/20/18 09:45 Temp Pulse Resp BP Pulse Ox 37.1 C 54 L 16 92/51 L 96 07/21/18 08:00 07/21/18 08:00 07/21/18 08:00 07/21/18 08:00 07/21/18 08:00 Uterine Position/Fundal Height: At Umbilicus Uterine Tone: Firm Physical Exam - Physical Exam Abdomen: dressing (No shadowing)
[2018-07-21 23:31] VITALS: BP 91/59
[2018-07-22] MEDS: ACETAMINOPHEN 325 MG TAB PO SCH ×3 (03:27→11:05)
[2018-07-22] MEDS: IBUPROFEN 600 MG TAB PO SCH ×3 (03:27→14:59)
--- NOTE | 2018-07-22 10:36 | OBPP ---
Progress Note Assessment/Plan: Assessment: [id number] pod# 2 s/p RLTCS rh negative baby rh positive - rhogam given rubella low immune breast feeding anemia discharge planning 07/22/18 10:33 Subjective/ Course: 07/20/18 19:57 Pt doing well. Has now tolerated regular food without n/v. Pain well controlled with duramorph/toradol. baby is breast feeding well. really not bothered by intense cramps. SCDs bothersome - ok to remove for sleep. 07/21/18 16:20 Doing great - no issues. Would like her IV out. Pain controlled. BF going well. 07/22/18 10:34 patient is doing well. pain is well controlled. normal lochia. denies headache and changes in vision. ambulating. passing gas. has had two bowel movements. denies headache or changes in vision. voiding without difficulty. wants to go home today. breast feeding is going well. pumping. Objective: 07/21/18 04:45 Patient ABO/Rh A NEGATIVE 07/20/18 09:45 Temp Pulse Resp BP Pulse Ox 36.4 C 54 L 14 91/59 L 95 07/21/18 20:00 07/21/18 20:00 07/21/18 20:00 07/21/18 20:00 07/21/18 20:00 Uterine Position/Fundal Height: Umbilicus -2 Physical Exam - Physical Exam Neck: non-tender, full range of motion Respiratory: chest non-tender, lungs clear, normal breath sounds Cardiac/Chest: normal peripheral pulses, regular rate, rhythm Abdomen: normal bowel sounds, non-tender Extremities: normal range of motion, non-tender, normal inspection, normal capillary refill Skin: normal color, warm/dry, other (incision clean dry and intact. slight amount of errythema below incision. showed )
--- NOTE | 2018-07-22 10:37 | OBGCSDC ---
General Delivery Information - General Info : 3 Para: 3 Abortions: 0 Type: Repeat L&D Analgesia/Anesthesia Type: Spinal Admission Date: 07/20/18 Labs: Patient ABO/Rh A NEGATIVE 07/20/18 09:45 Hct 35.0 % (38.0-47.0) L 07/21/18 04:45 - Hospital Course : 07/20/18 19:57 Pt doing well. Has now tolerated regular food without n/v. Pain well controlled with duramorph/toradol. baby is breast feeding well. really not bothered by intense cramps. SCDs bothersome - ok to remove for sleep. 07/21/18 16:20 Doing great - no issues. Would like her IV out. Pain controlled. BF going well. 07/22/18 10:34 patient is doing well. pain is well controlled. normal lochia. denies headache and changes in vision. ambulating. passing gas. has had two bowel movements. denies headache or changes in vision. voiding without difficulty. wants to go home today. breast feeding is going well. pumping. - Delivery Providers Surgeon: Paris Palomino College Specialist: Lidya Taylor Anesthesiologist: Clarisa Willingham - Delivery Number of Prior Sections: 2 Indications for Current Section: Elective/Repeat Surgical Procedures: Scheduled, Low Transverse Intra-op Complications: None EBL: 1000 Data PATRICK: 07/25/18 Gestational Age: 39 week(s) and 4 day(s) Rees Delivery Date: 07/20/18 Delivery Time: 08:29 Sex of Infant: Female [place] Weight (gm): 3362 g Score (1 Min): 9 Score (5 Min): 9 Discharge Information - Discharge Information Condition: Good Instruction/Follow Up: One Week (incision check ), Four Weeks (post wellness center mood check ), Six Weeks (post visit)
[2018-07-22] MEDS: SENNOSIDES/DOCUSATE SODIUM TAB PO SCH (12:23)
== END 2018-07-22 15:15 | disposition home or self-care (01) | DRG 788 ==
LOC: FLD 05:30 → FOB 11:00
PROVIDERS: ADMIT Obstetrics & Gynecology; ATTEND Obstetrics & Gynecology
PROC: 10D00Z1 Extraction of Products of Conception, Low, Open Approach (ICD-10-PCS; principal; 2018-07-20)
DX: O34.211 Maternal care for low transverse scar from previous cesarean delivery (principal); Z37.0 Single live birth; Z3A.39 39 weeks gestation of pregnancy; Z23 Encounter for immunization
CPT/HCPCS: J0690; J1885; J2250; J2274; J2405; J2590; J3105